=== PATIENT | male | born 1960 | race Caucasian/White ===

== ENCOUNTER 2020-09-07 15:19 | Emergency (ER) | payer OTHER ==
--- NOTE | 2020-09-07 15:53 | EDM.PDOC ---
ED HPI GENERAL MEDICAL PROBLEM - General Chief Complaint: ENT Problem Stated Complaint: NOSE BLEEDS EVERY 15 MINUTES, LASTING 30 MINUTES Time Seen by Provider: 09/07/20 15:50 Source of Information: Reports: Patient, RN, RN Notes Reviewed History Limitations: Reports: No Limitations - History of Present Illness INITIAL COMMENTS - FREE TEXT/NARRATIVE: Patient presents to the ED via personal vehicle with complaints of epistaxis; the patient is currently not bleeding from either nare. He reports he experienced nose bleed from the left nare starting at 0900 today. He states the bleeding was so significant the blood began to run from his right nare as well. He reports the bleed stopped after about 30 minutes, but began again following a cough which "..knocked the clot loose." He states he has experienced nose bleeds on and off today about every 15-30 minutes. He states he does take daily Aspirin 81mg, but not other blood thinners. He denies trauma to the area. He has not taken any medication for this problem. He denies headache, vision changes, sinus pressure/pain, nasal pressure/pain, or difficulty swallowing. He does report an uncomplicated COVID infection about three weeks ago. He attests to smoking about 1/2 a pack of cigarettes per day. He denies alcohol and recreational drug use. - Related Data Allergies Allergy/AdvReac Type Severity Reaction Status Date / Time No Known Allergies Allergy Verified 09/07/20 15:33 Home Meds: Home Meds Aspirin [Steven Chewable] 81 mg PO DAILY 05/10/14 [History] Omeprazole Magnesium [Prilosec Otc] 20 mg PO DAILY 05/10/14 [History] Simvastatin 40 mg PO BEDTIME 05/10/14 [History] Albuterol [Take Home: Albuterol 18 GM, 1 INH Pack] 2 puff IH Q6HR 06/25/20 [History] Budesonide/Formoterol Fumarate [Symbicort 80-4.5 MCG] 2 puff IH BID 06/25/20 [History] Diltiazem [Cardizem CD] 120 mg PO DAILY 06/25/20 [History] Past Medical History Cardiovascular History: Reports: High Cholesterol - Infectious Disease History Infectious Disease History: Reports: Novel Coronavirus Social & Family History - Family History Family Medical History: No Pertinent Family History - Tobacco Use Tobacco Use Status *Q: Current Every Day Tobacco User Years of Tobacco use: 40 Packs/Tins Daily: 1.5 - Caffeine Use Caffeine Use: Reports: Coffee - Recreational Drug Use Recreational Drug Use: No ED ROS ENT - Review of Systems Review Of Systems: Comprehensive ROS is negative, except as noted in HPI. ED EXAM, ENT - Physical Exam Exam: See Below Exam Limited By: No Limitations General Appearance: Alert, WD/WN, No Apparent Distress Eye Exam: Bilateral Eye: EOMI, Normal Inspection, PERRL Ears: Normal External Exam, Normal Canal, Hearing Grossly Normal, Normal TMs Nose: Dried Blood (To left nare), Other (Dry mucousa). No: Nasal Swelling, Nasal Tenderness, Foreign Body, Septal Deformity, Septal Hematoma, Septal Perforation, Injected Turbinates Mouth/Throat: Normal Inspection, Normal Gums, Normal Lips, Normal Oropharynx, Normal Teeth Head: Atraumatic, Normocephalic Neck: Normal Inspection, Supple, Non-Tender, Full Range of Motion Neurological: Alert, Oriented, CN II-XII Intact, Normal Cognition, Normal Gait, No Motor/Sensory Deficits Psychiatric: Normal Affect, Normal Mood Skin: Warm, Dry, Intact, Normal Color, No Rash. No: Ecchymosis, Erythema, Mottled, Pallor, Petechiae Course - Vital Signs Last Recorded V/S: Last Vital Signs Temp 97.6 F 09/07/20 15:39 Pulse 125 H 09/07/20 15:39 Resp 16 09/07/20 15:39 BP 126/92 H 09/07/20 15:39 Pulse Ox 94 L 09/07/20 15:39 - Re-Assessments/Exams Free Text/Narrative Re-Assessment/Exam: 09/07/20 Patient is not currently experiencing epistaxis at this time. Patient was given petroleum jelly to apply to the bilateral nares. He was instructed to sleep with humidified air. Patient encouraged to return to the ED with epistaxis that does not stop. Departure - Departure Time of Disposition: 15:52 Disposition: Home, Self-Care 01 Condition: Good Clinical Impression: Epistaxis, Nasal dryness - Discharge Information *PRESCRIPTION DRUG MONITORING PROGRAM REVIEWED*: Not Applicable *COPY OF PRESCRIPTION DRUG MONITORING REPORT IN PATIENT KAT: Not Applicable Instructions: Nosebleed, [id number] Forms: ED Department Discharge Additional Instructions: Sleep with humidified air at night. Apply Vaseline to both nares daily, and PRN. Drink plenty of water to stay hydrated. Return to primary care provider, or emergency department, with any nose bleed that you are unable to stop at home. Sepsis Event Note (ED) - Evaluation Sepsis Screening Result: No Definite Risk - Focused Exam Vital Signs: Vital Signs Temp Pulse Resp BP Pulse Ox 09/07/20 15:39 97.6 F 125 H 16 126/92 H 94 L
== END 2020-09-07 16:09 | disposition home or self-care (01) ==
LOC: DL.ED 15:19
DX: R04.0 Epistaxis (principal); J34.89 Other specified disorders of nose and nasal sinuses; E78.00 Pure hypercholesterolemia, unspecified; F17.210 Nicotine dependence, cigarettes, uncomplicated; Z79.82 Long term (current) use of aspirin; Z79.899 Other long term (current) drug therapy
CPT/HCPCS: 99283

== ENCOUNTER 2021-08-21 11:30 | Inpatient (IN) | payer OTHER ==
[2021-08-21] MEDS ORDERED: Furosemide 100 MG/10 ML SDV IVPUSH ONE (11:54)
[2021-08-21] MEDS ORDERED: methylPREDNISolone Sodium Succinate 125 MG/2 ML SDV IVPUSH ONE (11:54)
[2021-08-21] MEDS ORDERED: Albuterol/Ipratropium 3.0-0.5 MG/3 ML Neb Soln NEB ONE (11:54)
[2021-08-21 12:14] LABS: PTT,PARTIAL THROMBOPLSTIN TIME 24.4 SEC (22.0-34.0)
[2021-08-21 12:24] LABS: ANION GAP 7.8 mEq/L (7-13); CHLORIDE,CL 101 mmol/L (98-107); SODIUM,NA 142 mmol/L (136-145)
[2021-08-21 12:46] LABS: CORONAVIRUS COVID-19 NAA NEGATIVE (NEGATIVE)
[2021-08-21] MEDS: Sodium Chloride 0.9% 10 ML Syringe FLUSH PRN ×2 (14:01→17:12)
[2021-08-21] MEDS ORDERED: Albuterol/Ipratropium 3.0-0.5 MG/3 ML Neb Soln NEB PRN (16:30)
[2021-08-21] MEDS ORDERED: Ondansetron 4 MG Tab.DIS PO PRN (16:34)
[2021-08-21] MEDS ORDERED: Docusate Sodium 100 MG Cap PO PRN (16:34)
[2021-08-21] MEDS ORDERED: Acetaminophen 325 MG Tab PO PRN (16:34)
[2021-08-21] MEDS ORDERED: Temazepam 15 MG Cap PO PRN (16:34)
[2021-08-21] MEDS: Azithromycin 500 MG in Sodium Chloride 0.9% 250 ML IV SCH (17:10)
[2021-08-21] MEDS: cefTRIAXone 1 GM in Sodium Chloride 0.9% 50 ML IV SCH (18:50)
[2021-08-21] MEDS: methylPREDNISolone Sodium Succinate 40 MG/1 ML SDV IVPUSH SCH (19:11)
[2021-08-21] MEDS: Albuterol/Ipratropium 3.0-0.5 MG/3 ML Neb Soln NEB SCH (19:25)
[2021-08-21] MEDS: Budesonide 0.5 MG/2 ML Neb Susp NEB SCH (19:26)
[2021-08-21] MEDS: Simvastatin 40 MG Tab PO SCH (21:36)
[2021-08-22] MEDS: Albuterol/Ipratropium 3.0-0.5 MG/3 ML Neb Soln NEB SCH ×4 (00:33→18:08)
[2021-08-22] MEDS: methylPREDNISolone Sodium Succinate 40 MG/1 ML SDV IVPUSH SCH ×4 (00:34→18:21)
[2021-08-22] MEDS ORDERED: Pantoprazole 40 MG Tab.CR PO SCH (06:00)
[2021-08-22 07:02] LABS: ANION GAP 7.2 mEq/L (7-13); CHLORIDE,CL 101 mmol/L (98-107); SODIUM,NA 143 mmol/L (136-145)
[2021-08-22] MEDS: Budesonide 0.5 MG/2 ML Neb Susp NEB SCH ×2 (07:45→18:08)
[2021-08-22] MEDS ORDERED: Potassium Chloride 10 MEQ Tab.ER PO SCH (08:00)
[2021-08-22] MEDS: Furosemide 20 MG Tab PO SCH (09:35)
[2021-08-22] MEDS: Enoxaparin 40 MG/0.4 ML Syringe SUBCUT SCH (09:35)
[2021-08-22] MEDS: cefTRIAXone 1 GM in Sodium Chloride 0.9% 50 ML IV SCH (16:37)
[2021-08-22 16:46] LABS: ANION GAP 6.5 mEq/L (7-13); CHLORIDE,CL 100 mmol/L (98-107); SODIUM,NA 143 mmol/L (136-145)
[2021-08-22] MEDS: Pantoprazole 40 MG Tab.CR PO SCH (16:50)
[2021-08-22] MEDS: Azithromycin 500 MG in Sodium Chloride 0.9% 250 ML IV SCH (17:12)
[2021-08-22] MEDS: Simvastatin 40 MG Tab PO SCH (21:00)
[2021-08-22] MEDS ORDERED: Furosemide 20 MG/2 ML VIAL IVPUSH ONE (21:12)
[2021-08-22] MEDS ORDERED: Sodium Polystyrene Sulfonate 15 GM/60 ML Susp 60 ML Bot PO ONE (21:13)
[2021-08-22] MEDS: Nicotine 21 MG/24 Hr Patch TRDERM SCH (22:10)
[2021-08-22] MEDS: Check Patch TRDERM SCH (22:14)
[2021-08-23] MEDS: Albuterol/Ipratropium 3.0-0.5 MG/3 ML Neb Soln NEB SCH ×4 (00:26→19:04)
[2021-08-23] MEDS: methylPREDNISolone Sodium Succinate 40 MG/1 ML SDV IVPUSH SCH ×4 (00:27→21:20)
[2021-08-23] MEDS: Pantoprazole 40 MG Tab.CR PO SCH ×2 (05:40→16:29)
[2021-08-23 07:09] LABS: ANION GAP 4.8 mEq/L (7-13); CHLORIDE,CL 100 mmol/L (98-107); SODIUM,NA 142 mmol/L (136-145)
[2021-08-23] MEDS: Budesonide 0.5 MG/2 ML Neb Susp NEB SCH ×2 (07:45→19:05)
[2021-08-23] MEDS: Furosemide 20 MG Tab PO SCH (09:10)
[2021-08-23] MEDS: Enoxaparin 40 MG/0.4 ML Syringe SUBCUT SCH (09:11)
[2021-08-23] MEDS: Nicotine 21 MG/24 Hr Patch TRDERM SCH (09:11)
[2021-08-23] MEDS: Check Patch TRDERM SCH (09:12)
[2021-08-23] MEDS: Sodium Chloride 0.9% 10 ML Syringe FLUSH PRN (12:13)
[2021-08-23] MEDS: Azithromycin 500 MG in Sodium Chloride 0.9% 250 ML IV SCH (16:28)
[2021-08-23] MEDS: cefTRIAXone 1 GM in Sodium Chloride 0.9% 50 ML IV SCH (17:46)
[2021-08-23] MEDS: Simvastatin 40 MG Tab PO SCH (21:20)
[2021-08-24] MEDS: Pantoprazole 40 MG Tab.CR PO SCH (05:20)
[2021-08-24 06:20] LABS: ANION GAP 6.9 mEq/L (7-13); CHLORIDE,CL 100 mmol/L (98-107); SODIUM,NA 144 mmol/L (136-145)
[2021-08-24] MEDS: Budesonide 0.5 MG/2 ML Neb Susp NEB SCH (07:40)
[2021-08-24] MEDS: Albuterol/Ipratropium 3.0-0.5 MG/3 ML Neb Soln NEB SCH (07:40)
[2021-08-24] MEDS: Furosemide 20 MG Tab PO SCH (09:30)
[2021-08-24] MEDS: Nicotine 21 MG/24 Hr Patch TRDERM SCH (09:30)
[2021-08-24] MEDS: methylPREDNISolone Sodium Succinate 40 MG/1 ML SDV IVPUSH SCH (09:30)
[2021-08-24] MEDS: Check Patch TRDERM SCH (09:31)
[2021-08-24] MEDS: Enoxaparin 40 MG/0.4 ML Syringe SUBCUT SCH (09:31)
== END 2021-08-24 14:30 | disposition home or self-care (01) | DRG 189 ==
LOC: DL.ED 11:30 → DL.MS 14:49
PROVIDERS: ADMIT Internal Medicine; ATTEND Internal Medicine
DX: J96.22 Acute and chronic respiratory failure with hypercapnia (principal); J15.9 Unspecified bacterial pneumonia; J44.0 Chronic obstructive pulmonary disease with (acute) lower respiratory infection; J84.10 Pulmonary fibrosis, unspecified; J96.21 Acute and chronic respiratory failure with hypoxia; G47.33 Obstructive sleep apnea (adult) (pediatric); I87.8 Other specified disorders of veins; E87.5 Hyperkalemia; Z20.822 Contact with and (suspected) exposure to COVID-19; U09.9 Post COVID-19 condition, unspecified; E78.5 Hyperlipidemia, unspecified; H54.7 Unspecified visual loss; E78.00 Pure hypercholesterolemia, unspecified; F17.210 Nicotine dependence, cigarettes, uncomplicated; Z79.899 Other long term (current) drug therapy; Z79.82 Long term (current) use of aspirin
CPT/HCPCS: 0240U; 36415; 71250; 80048; 80053; 82947; 83605; 83735; 83880; 84443; 84484; 85025; 85379; 85610; 85730; 86140; 87040; 93005; 93010; 94618; 94640; 96374; 96375; 99223; 99232; 99239; 99284; 99285-25; A9270-GY; J0456; J0696; J1650; J1940; J2920; J2930; J7050; J7620-GY

== ENCOUNTER 2022-12-15 01:18 | Emergency (ER) | payer OTHER ==
[2022-12-15] MEDS ORDERED: Ondansetron 4 MG/2 ML SDV IVPUSH ONE (01:32)
[2022-12-15] MEDS ORDERED: Ketorolac 30 MG/ML SDV IVPUSH ONE (01:32)
[2022-12-15] MEDS ORDERED: Iopamidol 612 MG/ML 100 ML Bottle IVPUSH ONE (01:32)
[2022-12-15 02:10] LABS: ANION GAP 11.7 mEq/L (7-13)
[2022-12-15 03:17] LABS: CORONAVIRUS COVID-19 NAA NEGATIVE (NEGATIVE)
== END 2022-12-15 03:33 | disposition home or self-care (01) ==
LOC: DL.ED 01:18
DX: K81.9 Cholecystitis, unspecified (principal); E78.00 Pure hypercholesterolemia, unspecified; J44.9 Chronic obstructive pulmonary disease, unspecified; Z79.899 Other long term (current) drug therapy; Z86.16 Personal history of COVID-19; Z20.822 Contact with and (suspected) exposure to COVID-19
CPT/HCPCS: 0240U; 36415; 71045; 74177; 80053; 83690; 83880; 84484; 85025; 85610; 93005; 96374; 96375; 99284; J1885; J2405; Q9967

== ENCOUNTER 2022-12-16 03:08 | Emergency (ER) | payer OTHER ==
[2022-12-16] MEDS ORDERED: Ketorolac 30 MG/ML SDV IM ONE (03:30)
== END 2022-12-16 03:53 | disposition home or self-care (01) ==
LOC: DL.ED 03:08
DX: K80.20 Calculus of gallbladder without cholecystitis without obstruction (principal); E78.00 Pure hypercholesterolemia, unspecified; J44.9 Chronic obstructive pulmonary disease, unspecified; E10.9 Type 1 diabetes mellitus without complications; Z79.899 Other long term (current) drug therapy
CPT/HCPCS: 96372; 99283; J1885

== ENCOUNTER 2025-01-24 00:27 | Inpatient (IN) | payer OTHER ==
[2025-01-24 01:21] LABS: BASOPHILS PERCENT AUTO 0.4 % (0.0-1.0); EOSINOPHILS PERCENT AUTO 0.4 % (1.0-3.0); HEMATOCRIT 45.5 % (40.0-54.0); HEMOGLOBIN 15.2 g/dL (14.0-18.0); LYMPHOCYTES PERCENT AUTO 14.6 % (20.5-50.1); MEAN CORPUSCULAR HEMOGLOBIN 26.6 pg (27.0-34.0); MEAN CORPUSCULAR HGB CONC 33.4 g/dL (33.0-35.0); MEAN CORPUSCULAR VOLUME 79.5 fL (80-100); MONOCYTES PERCENT AUTO 6.3 % (2-8); NEUTROPHILS PERCENT AUTO 78.3 % (42.2-75.2); PLATELET COUNT,PLT 188 10^3/uL (150-450); RED BLOOD CELL COUNT 5.72 10^6/uL (4.6-6.2); WHITE BLOOD CELL COUNT,WBC 11.3 10^3/uL (5.0-10.0)
[2025-01-24] MEDS: Sodium Chloride 0.9% 1,000 ML IV ONE (01:26)
[2025-01-24 01:34] LABS: ALBUMIN 4.6 g/dL (3.4-5.0); ANION GAP 16.2 mEq/L (7-13); BILIRUBIN TOTAL 1.1 mg/dL (0.2-1.0); BUN/CREATININE RATIO 16.5 (No establ ref range); C-REACTIVE PROTEIN 1.76 ng/dL (<=0.50); CALCIUM 9.6 mg/dL (8.5-10.1); CREATININE 1.64 mg/dL (0.70-1.30); EST CRCL DRUG DOSING (CG) 49.74 mL/min; MAGNESIUM 1.6 mg/dL (1.8-2.4); POTASSIUM,K 4.2 mmol/L (3.5-5.1); PROTEIN TOTAL,TP 9.3 g/dL (6.4-8.2)
[2025-01-24] MEDS: fentaNYL 100 MCG/2 ML SDV IVPUSH ONE ×2 (01:39→02:03)
[2025-01-24] MEDS ORDERED: Naloxone 2 MG/2 ML Syringe IVPUSH PRN (01:54)
[2025-01-24 02:42] LABS: APPEARANCE,URINE CLEAR (CLEAR); BILIRUBIN,URINE SMALL (NEGATIVE); COLOR,URINE AMBER (YELLOW); GLUCOSE,URINE NEGATIVE (NEGATIVE); KETONES,URINE 15 (NEGATIVE); LEUKOCYTE ESTERASE,URINE NEGATIVE (NEGATIVE); NITRITE,URINE NEGATIVE (NEGATIVE); OCCULT BLOOD,URINE LARGE (NEGATIVE); PH,URINE 5.5 (5.0-9.0); PROTEIN,URINE >=300 (NEGATIVE)
[2025-01-24 02:53] LABS: RBC,URINE 75-100 /HPF (0-5)
[2025-01-24 02:54] LABS: BACTERIA,URINE FEW /HPF (0-FEW/HPF); EPITHELIAL CELLS,URINE FEW /HPF (NOT SEEN); HYALINE CASTS,URINE FEW; MUCUS,URINE MODERATE /LPF (NOT SEEN); YEAST,URINE FEW /HPF (NOT SEEN)
[2025-01-24] MEDS: Iopamidol 612 MG/ML 100 ML Bottle IVPUSH ONE (03:08)
[2025-01-24] MEDS: Ketorolac 30 MG/ML SDV IVPUSH ONE (03:26)
[2025-01-24] MEDS: Tamsulosin 0.4 MG Cap.ER PO ONE (04:22)
[2025-01-24] MEDS ORDERED: Polyethylene Glycol 3350 Powder 17 GM Packet PO PRN (06:35)
[2025-01-24] MEDS ORDERED: Albuterol 0.083% 2.5 MG/3 ML Neb Soln NEB PRN (06:35)
[2025-01-24] MEDS ORDERED: Glucagon,Human Recombinant 1 MG Vial IM PRN ×2 (06:53→06:56)
[2025-01-24] MEDS ORDERED: 50% Dextrose in Water 50 ML Syringe IVPUSH PRN ×2 (06:53→06:56)
[2025-01-24] MEDS ORDERED: Ondansetron 4 MG/2 ML SDV IVPUSH PRN (07:14)
[2025-01-24 07:24] LABS: PROTHROMBIN TIME 10.5 SEC (9.0-12.0)
[2025-01-24] MEDS: Tamsulosin 0.4 MG Cap.ER PO SCH (07:45)
[2025-01-24] MEDS: Acetaminophen 325 MG Tab PO SCH (07:45)
[2025-01-24] MEDS: Sodium Chloride 0.9% 1,000 ML IV SCH (07:46)
[2025-01-24] MEDS: Magnesium Sulf/Wat 2 GM/50 mL 2 GM in Premix Bag 1 BAG IV ONE (07:46)
[2025-01-24] MEDS ORDERED: Insulin Lispro 100 Units/ML 3 ML Vial SUBCUT SCH (08:00)
[2025-01-24] MEDS ORDERED: Non-Formulary Medication 1 Each (Omeprazole Magnesium [Prilosec Otc] 20 MG Tablet.Dr) PO SCH (09:00)
[2025-01-24] MEDS ORDERED: DILTIAZEM 90 MG PO SCH (09:00)
[2025-01-24] MEDS: Cefdinir 300 MG Cap PO SCH (09:12)
[2025-01-24] MEDS: Diltiazem 180 MG Cap.CD PO SCH (09:12)
[2025-01-24] MEDS: Pantoprazole 40 MG Tab.CR PO SCH (09:12)
[2025-01-24] MEDS: oxyCODONE 5 MG Tab PO SCH (09:12)
[2025-01-24] MEDS: Insulin Lispro 100 Units/ML 3 ML Vial SUBCUT SCH ×2 (09:14→09:17)
[2025-01-24] MEDS: Insulin Glarg,Human.Rec.Analog 100 Unit/ML 10 ML Vial SUBCUT SCH (09:16)
[2025-01-24] MEDS: Oxymetazoline 0.05% Nasal Spray 30 ML Bottle NAS ONE (14:00)
[2025-01-24] MEDS: Heparin Sodium 5,000 Units/ML Vial SUBCUT SCH (14:09)
[2025-01-24] MEDS: Tiotropium Bromide 4 GM Inhalation Spray (2.5mcg/1 dose; 10 doses) INH SCH (14:09)
[2025-01-24] MEDS ORDERED: Lidocaine 1% 5 ML VIAL INJECT ONE (14:53)
[2025-01-24] MEDS: Lidocaine 1% with EPINEPHrine 1:100,000 20 ML MDV INJECT ONE (15:35)
[2025-01-24] MEDS: Formoterol/Mometasone 100-5 MCG 8.8 GM Inhaler INH SCH (18:20)
[2025-01-24] MEDS ORDERED: Simvastatin 40 MG Tab PO SCH (21:00)
[2025-01-24] MEDS: Simvastatin 10 MG Tab PO SCH (21:19)
[2025-01-25] MEDS: Morphine 2 MG/ML SYRINGE IVPUSH PRN (02:54)
[2025-01-25] MEDS ORDERED: Pantoprazole 40 MG Tab.CR PO SCH (06:00)
[2025-01-25 06:30] LABS: BASOPHILS PERCENT AUTO 0.5 % (0.0-1.0); EOSINOPHILS PERCENT AUTO 1.6 % (1.0-3.0); HEMATOCRIT 36.1 % (40.0-54.0); HEMOGLOBIN 12.1 g/dL (14.0-18.0); LYMPHOCYTES PERCENT AUTO 22.4 % (20.5-50.1); MEAN CORPUSCULAR HEMOGLOBIN 27.4 pg (27.0-34.0); MEAN CORPUSCULAR HGB CONC 33.5 g/dL (33.0-35.0); MEAN CORPUSCULAR VOLUME 81.7 fL (80-100); MONOCYTES PERCENT AUTO 8.9 % (2-8); NEUTROPHILS PERCENT AUTO 66.6 % (42.2-75.2); PLATELET COUNT,PLT 138 10^3/uL (150-450); RED BLOOD CELL COUNT 4.42 10^6/uL (4.6-6.2); WHITE BLOOD CELL COUNT,WBC 5.5 10^3/uL (5.0-10.0)
[2025-01-25 06:40] LABS: ANION GAP 11.3 mEq/L (7-13); CALCIUM 8.4 mg/dL (8.5-10.1); CREATININE 1.69 mg/dL (0.70-1.30); EST CRCL DRUG DOSING (CG) 48.27 mL/min; MAGNESIUM 1.9 mg/dL (1.8-2.4); POTASSIUM,K 4.3 mmol/L (3.5-5.1)
[2025-01-25] MEDS: Diltiazem 180 MG Cap.CD PO SCH (08:11)
[2025-01-25] MEDS: Docusate Sodium 100 MG Cap PO PRN (08:12)
[2025-01-25] MEDS: Polyethylene Glycol 3350 Powder 17 GM Packet PO SCH (20:30)
[2025-01-25] MEDS: Sennosides/Docusate Sodium 50-8.6 MG Tab PO SCH (20:31)
[2025-01-25] MEDS: Docusate Sodium 100 MG Cap PO SCH (20:31)
[2025-01-26 06:33] LABS: BASOPHILS PERCENT AUTO 0.4 % (0.0-1.0); EOSINOPHILS PERCENT AUTO 1.6 % (1.0-3.0); HEMOGLOBIN 10.9 g/dL (14.0-18.0); LYMPHOCYTES PERCENT AUTO 29.3 % (20.5-50.1); MEAN CORPUSCULAR HEMOGLOBIN 26.5 pg (27.0-34.0); MEAN CORPUSCULAR HGB CONC 32.1 g/dL (33.0-35.0); MEAN CORPUSCULAR VOLUME 82.7 fL (80-100); NEUTROPHILS PERCENT AUTO 58.7 % (42.2-75.2); PLATELET COUNT,PLT 122 10^3/uL (150-450); RED BLOOD CELL COUNT 4.11 10^6/uL (4.6-6.2); WHITE BLOOD CELL COUNT,WBC 5.1 10^3/uL (5.0-10.0)
[2025-01-26 06:57] LABS: ALBUMIN 3.3 g/dL (3.4-5.0); ANION GAP 9.4 mEq/L (7-13); BILIRUBIN TOTAL 0.4 mg/dL (0.2-1.0); BUN/CREATININE RATIO 7.5 (No establ ref range); CALCIUM 8.2 mg/dL (8.5-10.1); CREATININE 1.61 mg/dL (0.70-1.30); EST CRCL DRUG DOSING (CG) 50.67 mL/min; MAGNESIUM 1.8 mg/dL (1.8-2.4); POTASSIUM,K 4.4 mmol/L (3.5-5.1); PROTEIN TOTAL,TP 6.8 g/dL (6.4-8.2)
[2025-01-26 06:58] LABS: A/G RATIO 0.94
[2025-01-26] MEDS: oxyCODONE 5 MG Tab PO PRN (20:49)
[2025-01-27 06:44] LABS: BASOPHILS PERCENT AUTO 0.6 % (0.0-1.0); EOSINOPHILS PERCENT AUTO 2.2 % (1.0-3.0); HEMATOCRIT 34.2 % (40.0-54.0); HEMOGLOBIN 11.1 g/dL (14.0-18.0); LYMPHOCYTES PERCENT AUTO 25.9 % (20.5-50.1); MEAN CORPUSCULAR HEMOGLOBIN 26.7 pg (27.0-34.0); MEAN CORPUSCULAR HGB CONC 32.5 g/dL (33.0-35.0); MEAN CORPUSCULAR VOLUME 82.2 fL (80-100); MONOCYTES PERCENT AUTO 7.8 % (2-8); NEUTROPHILS PERCENT AUTO 63.5 % (42.2-75.2); PLATELET COUNT,PLT 129 10^3/uL (150-450); RED BLOOD CELL COUNT 4.16 10^6/uL (4.6-6.2); WHITE BLOOD CELL COUNT,WBC 5.4 10^3/uL (5.0-10.0)
[2025-01-27 07:11] LABS: ALBUMIN 3.3 g/dL (3.4-5.0); ANION GAP 12.1 mEq/L (7-13); BILIRUBIN TOTAL 0.4 mg/dL (0.2-1.0); BUN/CREATININE RATIO 8.3 (No establ ref range); CALCIUM 8.5 mg/dL (8.5-10.1); CREATININE 1.45 mg/dL (0.70-1.30); EST CRCL DRUG DOSING (CG) 56.26 mL/min; MAGNESIUM 1.7 mg/dL (1.8-2.4); POTASSIUM,K 4.1 mmol/L (3.5-5.1); PROTEIN TOTAL,TP 6.9 g/dL (6.4-8.2)
[2025-01-27 07:14] LABS: A/G RATIO 0.92
[2025-01-27] MEDS: Magnesium Oxide 400 MG Tab PO SCH (08:33)
[2025-01-27] MEDS: Polyethylene Glycol 3350 Powder 17 GM Packet PO SCH (08:33)
[2025-01-27] MEDS: Lactulose Soln 10 GM/15 ML 30 ML UD Cup PO ONE ×2 (09:52→15:07)
[2025-01-27] MEDS: Bisacodyl 5 MG Tab PO ONE (17:43)
[2025-01-27] MEDS: Take Home: Tamsulosin HCl 0.4 MG, 6 Cap Pack PO ONE (18:29)
[2025-01-27] MEDS ORDERED: Sennosides/Docusate Sodium 50-8.6 MG Tab PO SCH (21:00)
== END 2025-01-27 18:30 | disposition home or self-care (01) | DRG 694 ==
LOC: DL.ED 00:27 → DL.MS 04:37
PROVIDERS: ADMIT Internal Medicine; ATTEND Student in an Organized Health Care Education/Training Program
DX: N13.2 Hydronephrosis with renal and ureteral calculous obstruction (principal); N17.9 Acute kidney failure, unspecified; J44.9 Chronic obstructive pulmonary disease, unspecified; E11.9 Type 2 diabetes mellitus without complications; E78.00 Pure hypercholesterolemia, unspecified; I10 Essential (primary) hypertension; D64.9 Anemia, unspecified; D69.6 Thrombocytopenia, unspecified; E83.42 Hypomagnesemia; G47.33 Obstructive sleep apnea (adult) (pediatric); H54.7 Unspecified visual loss; R16.2 Hepatomegaly with splenomegaly, not elsewhere classified; K76.0 Fatty (change of) liver, not elsewhere classified; K21.9 Gastro-esophageal reflux disease without esophagitis; E78.5 Hyperlipidemia, unspecified; K80.20 Calculus of gallbladder without cholecystitis without obstruction; K59.09 Other constipation; M54.9 Dorsalgia, unspecified; G89.29 Other chronic pain; Z90.49 Acquired absence of other specified parts of digestive tract; Z79.84 Long term (current) use of oral hypoglycemic drugs; Z79.899 Other long term (current) drug therapy; Z86.16 Personal history of COVID-19
CPT/HCPCS: 36415; 71260; 74177; 80048; 80053; 81001; 82947; 83605; 83735; 84100; 85025; 85610; 86140; 96361; 96365; 96366; 96375; 99223; 99232; 99238; 99284; 99285-25; A9270-GY; J1644; J1815-GY; J1885; J2270; J3010; J3475; J7030; Q9967